=== PATIENT | female | born 1990 | race Asian ===

== ENCOUNTER 2023-03-29 09:27 | Emergency (ER) | payer OTHER ==
[2023-03-29 09:42] VITALS: BP 117/70; O2SAT 95
--- NOTE | 2023-03-29 09:48 | ED Physician Documentation ---
PD HPI URI - Stated complaint Stated Complaint: BODY ACHES,SINUS PRESSURE,COUGH - Chief complaint Chief Complaint: Heent - History obtained from History obtained from: Patient - History of Present Illness Timing - onset: How many days ago (5-6, with worse symptoms the past 2 days of sinus pressure, purulent drainage, cough with brown sputum.) Timing duration: Days Timing details: Gradual onset, Still present Associated symptoms: Nasal congestion, Sinus pain (more the past 2 days with drainage), Productive cough Contributing factors: Sick contact (her child is in daycare so illness are common. 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: Other - Present Medications Home Medications: Ambulatory Orders Medication Instructions Recorded Confirmed Albuterol Sulf [Ventolin Hfa 2 - 3 puffs INH QID PRN #1 each 03/29/23 Inhaler] Amoxicillin 500 mg PO TID #15 cap 03/29/23 Cetirizine [ZyrTEC] 10 mg PO BID #20 tablet 03/29/23 dexAMETHasone [Decadron] 4 mg PO DAILY #5 tablet 03/29/23 - Allergies Allergies/Adverse Reactions: Allergies Allergy/AdvReac Type Severity Reaction Status Date / Time No Known Drug Allergies Allergy Verified 03/29/23 09:36 - Social History Does the pt smoke?: No Smoking Status: Never smoker PD ED PE NORMAL - Vitals Vital signs reviewed: Yes - General General: Alert and oriented X 3, Well developed/nourished - HEENT HEENT: Ears normal, Pharynx benign - Neck Neck: Supple, no meningeal sign, No adenopathy - Cardiac Cardiac: RRR, No murmur - Respiratory Respiratory: Clear bilaterally - Derm Derm: Normal color, Warm and dry - Neuro Neuro: Alert and oriented X 3, No motor deficit, Normal speech Results - Vitals Vitals: Vital Signs - 24 hr 03/29/23 09:32 Temperature 36.3 C L Heart Rate 84 Respiratory 18 Rate Blood Pressure 117/70 O2 Saturation 95 Oxygen O2 Source Room air - Labs Labs: Laboratory Tests 03/29/23 09:38 Nasal Adenovirus (PCR) NOT DETECTED Nasal B. parapertussis DNA (PCR) NOT DETECTED Nasal Coronavir 229E PCR NOT DETECTED Nasal Coronavir HKU1 PCR NOT DETECTED Nasal Coronavir NL63 PCR NOT DETECTED Nasal Coronavir OC43 PCR NOT DETECTED Nasal Enterovir/Rhinovir PCR DETECTED A Nasal Influenza B PCR NOT DETECTED Nasal Influenza A PCR NOT DETECTED Nasal Parainfluen 1 PCR NOT DETECTED Nasal Parainfluen 2 PCR NOT DETECTED Nasal Parainfluen 3 PCR NOT DETECTED Nasal Parainfluen 4 PCR NOT DETECTED Nasal RSV (PCR) NOT DETECTED Nasal B.pertussis DNA PCR NOT DETECTED Nasal C.pneumoniae (PCR) NOT DETECTED Lenny Human Metapneumo PCR NOT DETECTED Nasal M.pneumoniae (PCR) NOT DETECTED Nasal SARS-CoV-2 (PCR) NOT DETECTED PD Medical Decision Making - ED course Complexity details: reviewed results (viral PCR positive for rhinovirus. However has had 2 days of increased sinusitis type symptoms. Can treat for viral symptoms and also consider antibiotics for secondary sinusitis. ), considered differential, d/w patient Departure - Departure Disposition: 01 Home, Self Care Clinical Impression: Rhinovirus Upper respiratory infection Qualifiers: URI type: unspecified URI Qualified Code(s): J06.9 - Acute upper respiratory infection, unspecified Condition: Stable Record reviewed to determine appropriate education?: Yes Follow-Up: [facility] [Provider Group] Prescriptions: Amoxicillin 500 mg PO TID #15 cap dexAMETHasone [Decadron] 4 mg PO DAILY #5 tablet Albuterol Sulf [Ventolin Hfa Inhaler] 2 - 3 puffs INH QID PRN #1 each PRN Reason: Shortness Of Air/Wheezing Cetirizine [ZyrTEC] 10 mg PO BID #20 tablet Comments: Your viral respiratory panel has not resulted yet. Will not really change the current treatment plan so we can either call you with the positive test or you can look up the results later this morning on the patient portal. At this point much of your symptoms are likely with an underlying viral cause. We will treat this component with antihistamines and anti-inflammatories and we can use an inhaler for the cough and breathing. It is possible to be developing a bacterial component with the sinuses and some of your symptoms sound like that. We can add amoxicillin 3 times a day for the next 5 days for potential bacterial component. I sent your prescriptions to the [facility] pharmacy. Stay well-hydrated. Tylenol every 4-6 hours if needed for fevers or pains. I would anticipate improvement over the next 2 to 3 days and resolved by 3 to 5 days. Recheck if not improving in a good timeframe. Forms: PCP List Discharge Date/Time: 03/29/23 10:45
[2023-03-29] MEDS ORDERED: AMOXICILLIN 250 MG CAPSULE PO STA (10:11)
[2023-03-29] MEDS ORDERED: CETIRIZINE 10 MG TABLET PO STA (10:11)
[2023-03-29] MEDS ORDERED: dexAMETHasone 4 MG TABLET PO STA (10:11)
[2023-03-29 10:36] LABS: B. PARAPERTUSSIS- RESP PCR PAN NOT DETECTED; B. PERTUSSIS- RESP PCR PANEL NOT DETECTED; C. PNEUMONIAE- RESP PCR PANEL NOT DETECTED; CORONAVIRUS 229E-RESP PCR NOT DETECTED; CORONAVIRUS HKU1-RESP PCR NOT DETECTED; CORONAVIRUS NL63-RESP PCR NOT DETECTED; CORONAVIRUS OC43-RESP PCR NOT DETECTED; HUMAN METAPNEUMOVIRUS NOT DETECTED; INFLUENZA A- RESP PCR PANEL NOT DETECTED; INFLUENZA B - RESP PCR PANEL NOT DETECTED; M. PNEUMONIAE- RESP PCR PANEL NOT DETECTED; PARAINFLUENZA VIRUS 1 NOT DETECTED; PARAINFLUENZA VIRUS 2 NOT DETECTED; PARAINFLUENZA VIRUS 3 NOT DETECTED; PARAINFLUENZA VIRUS 4 NOT DETECTED; RHINOVIRUS/ENTEROVIRUS DETECTED; RSV- RESP PCR PANEL NOT DETECTED; SARS-CoV-2 -RESP PCR PANEL NOT DETECTED
== END 2023-03-29 10:45 | disposition home or self-care (01) ==
LOC: ED 09:27
DX: J06.9 Acute upper respiratory infection, unspecified (principal); B34.8 Other viral infections of unspecified site; Z11.52 Encounter for screening for COVID-19
CPT/HCPCS: 87633; 99283; A9270; J8540

== ENCOUNTER 2023-08-05 19:09 | Emergency (ER) | payer OTHER ==
[2023-08-05 19:26] VITALS: BP 140/83
--- NOTE | 2023-08-05 19:47 | ED Physician Documentation ---
PD HPI BACK PAIN - Stated complaint Stated Complaint: LOWER BACK PX - Chief complaint Chief Complaint: Back Pain - History obtained from History obtained from: Patient - Additional information Additional information: 33-year-old woman with recurrent sciatica presents with a flare of same. Right greater than left low back pain after lifting today. 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 No weakness, numbness, tingling, saddle anesthesia, or fevers. She is also having exacerbation of her cubital tunnel syndrome which she has had a steroid injection in her right arm for before. 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: Other - Present Medications Home Medications: Ambulatory Orders Medication Instructions Recorded Confirmed Cyclobenzaprine [Flexeril] 10 mg PO TID PRN #20 tablet 06/12/23 Ibuprofen [Motrin] 600 mg PO Q6H PRN #30 tab 06/12/23 08/05/23 Cyclobenzaprine [Flexeril] 10 mg PO TID PRN #20 tablet 08/05/23 Ibuprofen [Motrin] 600 mg PO Q6H PRN #30 tab 08/05/23 predniSONE [Deltasone] 20 mg PO [id number] #21 tab 08/05/23 - Allergies Allergies/Adverse Reactions: Allergies Allergy/AdvReac Type Severity Reaction Status Date / Time No Known Drug Allergies Allergy Verified 08/05/23 19:22 - Social History Does the pt smoke?: No Smoking Status: Never smoker Does the pt drink ETOH?: No Does the pt have substance abuse?: No - Immunizations Immunizations are current?: Yes - POLST Patient has POLST: No PD ED PE NORMAL - Vitals Vital signs reviewed: Yes - General General: Alert and oriented X 3, No acute distress - Back Back: No CVA TTP, No spinal TTP, Other (Muscular tenderness and bilateral paralumbar muscular's) - Derm Derm: Normal color, Warm and dry - Extremities Extremities: Other (The patient has equal and normal Achilles and patellar reflexes bilaterally. Normal sensation in all areas of the legs. Patient denies saddle anesthesia. Normal strength in flexion-extension at the ankles, knees, and flexion of the hips.) Results - Vitals Vitals: Vital Signs - 24 hr 08/05/23 19:22 Temperature 36.8 C Heart Rate 90 Respiratory 16 Rate Blood Pressure 140/83 H O2 Saturation 100 Oxygen O2 Source Room air PD Medical Decision Making - ED course ED course: 33-year-old woman with recurrent low back pain presents with same. She has had luck with trigger point injection in the past and a trigger point injection was done with 8 mL of 0.5% bupivacaine and 40 mg of triamcinolone in the right sciatic notch and the area of maximal tenderness. This patient has seemingly uncomplicated musculoskeletal back pain. The patient has no "red flags." Specifically denies IV drug use, fevers, incontinence, saddle anesthesia. Spinal epidural abscess was considered, given that the patient has no fever, is not diabetic, has no spinal tenderness, does not use IV drugs, and has no bilateral neurologic symptoms, the diagnosis of spinal epidural abscess is considered exceedingly unlikely. Departure - Departure Disposition: 01 Home, Self Care Clinical Impression: Sciatica Condition: Good Record reviewed to determine appropriate education?: Yes Instructions: ED Sciatica Prescriptions: predniSONE [Deltasone] 20 mg PO [id number] #21 tab Cyclobenzaprine [Flexeril] 10 mg PO TID PRN #20 tablet PRN Reason: Spasms Ibuprofen [Motrin] 600 mg PO Q6H PRN #30 tab PRN Reason: Pain Comments: For the cubital tunnel [place]. I sent your prescriptions electronically to [facility] in [place]. Call your doctor to arrange a follow-up appointment, make the next available appointment. In the interim, return anytime if worse or if new symptoms develop. Forms: Activity restrictions
[2023-08-05] MEDS: TRIAMCINOLONE 40 MG/ML VIAL IM STA (20:02)
[2023-08-05] MEDS: BUPIVACAINE 0.5% PF 10 ML VIAL SUBQ STA (20:20)
[2023-08-05] MEDS: BUPIVACAINE 0.25% PF 30 ML VIAL SUBQ STA (20:20)
[2023-08-05] MEDS: predniSONE 20 MG TABLET PO STA (20:37)
[2023-08-05] MEDS: IBUPROFEN 600 MG TABLET PO STA (20:37)
[2023-08-05] MEDS: CYCLOBENZAPRINE 10 MG Prepack 2 PO PRN (20:38)
[2023-08-05 20:48] VITALS: O2SAT 99
== END 2023-08-05 20:41 | disposition home or self-care (01) ==
LOC: ED 19:09
DX: M54.42 Lumbago with sciatica, left side (principal); M54.41 Lumbago with sciatica, right side
CPT/HCPCS: 20552; 99283; 99284; A9270; J7512